=== PATIENT | male | born 1985 | race Caucasian/White ===

== ENCOUNTER → 2019-06-30 18:37 | Outpatient (CLI) | payer OTHER, SELFPAY ==
--- NOTE | 2019-06-30 | DI.MRI.S_ITS ---
PROCEDURE: MRFOOT LT WO CON INDICATIONS: pain in left foot TECHNIQUE: Noncontrast sagittal T1 spin echo and T2 fast spin echo with fat saturation, long-axis T1 spin echo and T2 fast spin echo with fat saturation, short-axis T1 spin echo and T2 fast spin echo with fat saturation through the forefoot. COMPARISON: None. FINDINGS: Image quality: Diagnostic. Bones and joints: No acute fracture, dislocation, or suspicious osseous lesion is appreciated involving the osseous structures of the left midfoot or forefoot. There is subtle marrow edema evident involving the shafts of the 2nd and to a lesser degree the 3rd and 4th metatarsals. No cortical breakthrough is evident. No significant cortical irregularity or thickening is appreciated. There are early degenerative changes involving the 1st metatarsal phalangeal joint without associated hallux valgus. No significant joint effusions are appreciated. Soft tissues: The visualized plantar foot muscles demonstrate normal signal and bulk. Visualized flexor and extensor tendons appear intact, without tenosynovitis. The distal insertions of the peroneus brevis and longus tendons appear intact. The principal Lisfranc ligament appears intact. No soft tissue ganglion cysts or bursal fluid collections. Sagittal images demonstrate no evidence for plantar plate tears. IMPRESSION: 1. Nonspecific marrow edema involving the 2nd through 4th metatarsal shafts may represent stress reaction. No definitive stress fractures are evident. 2. No soft tissue abnormalities of the left foot. 3. Early degenerative changes of the 1st metatarsophalangeal joint. Dictated by: Chris Moody M.D. on 07/01/2019 at 8:36 Approved by: Chris Moody M.D. on 07/01/2019 at 8:39
== END ==
DX: M79.672 Pain in left foot (principal)
CPT/HCPCS: 73718

== ENCOUNTER → 2023-02-04 07:11 | Outpatient (CLI) | payer OTHER, SELFPAY ==
[2023-02-04 08:29] LABS: Alanine Aminotransferase 29 IU/L (<50); Albumin 4.1 g/dL (3.5-5.0); Albumin Globulin Ratio 1.6 (1.0-2.8); Alkaline Phosphatase 63 U/L (38-126); Aspartate Aminotransferase 32 IU/L (17-59); BUN Creatinine Ratio 20.2 (6-22); Bilirubin Total 0.5 mg/dL (0.2-1.3); Blood Urea Nitrogen 20 mg/dL (9-20); Calcium 8.9 mg/dL (8.4-10.2); Carbon Dioxide 31 mmol/L (22-32); Chloride 102 mmol/L (98-107); Cholesterol 140 mg/dL (140-199); Creatine Kinase 244 U/L (55-170); Estimated Glomerular Filt Rate > 60 mL/min (>60); Globulin 2.6 g/dL (1.7-4.1); Glucose 90 mg/dL (70-100); HDL Cholesterol 53 mg/dL (40-60); HEMOLYSIS < 15 (0-50); LDL Cholesterol Calculated 61 mg/dL (<100); Potassium 4.3 mmol/L (3.4-5.1); Sodium 138 mmol/L (137-145); Total Protein 6.7 g/dL (6.3-8.2); Triglycerides 130 mg/dL (35-150)
[2023-02-04 08:31] LABS: Creatinine Urine Random 148.5 mg/dL
[2023-02-04 08:50] LABS: Microalbumin Urine Random < 0.6 mg/dL (0-1.6)
[2023-02-05 06:22] LABS: Apolipoprotein B 61 mg/dL (<90); Labcorp Hemoglobin (Hb) A1c 5.6 % (4.8-5.6)
[2023-02-06 16:05] LABS: Lipoprotein (a) 343.5 nmol/L (<75.0)
== END ==
PROVIDERS: Referring Provider Student in an Organized Health Care Education/Training Program; Visit Provider Student in an Organized Health Care Education/Training Program
DX: E78.5 Hyperlipidemia, unspecified (principal)
CPT/HCPCS: 36415; 80053; 80061; 82043; 82172; 82550; 82570; 83036; 83695

== ENCOUNTER → 2023-05-10 18:45 | Outpatient (CLI) | payer OTHER, SELFPAY ==
--- NOTE | 2023-05-10 | DI.MRI.S_ITS ---
PROCEDURE: MR KNEE LT WO CON INDICATIONS: left knee pain TECHNIQUE: Noncontrast sagittal PD fast spin echo and T2 fast spin echo with fat saturation, sagittal 3-D FLASH with fat saturation; coronal T1 spin echo and PD fast spin echo with fat saturation, and axial PD fast spin echo with fat saturation through the knee. COMPARISON: None. FINDINGS: Image quality: Excellent. Menisci: The medial and lateral menisci demonstrate normal morphology and internal signal. The meniscal root ligaments appear intact. Cruciate ligaments: The anterior and posterior cruciate ligaments appear intact. Medial structures: The medial collateral ligament appears intact. Visualized portions of the pes anserinus tendons appear normal. No abnormal bursal fluid. Lateral structures: The lateral collateral ligament, long and short heads of the biceps femoris tendon appear intact. The popliteus tendon appears normal. Iliotibial band appears normal. Anterior structures: The quadriceps and patellar tendons appear intact. Patellar alignment is normal. No femoral trochlear dysplasia or ventral trochlear prominence. No edema in the infrapatellar fat pad. Bones and cartilage: No fracture. Mild ill-defined T2 signal elevation within the posterior nonweightbearing aspect of the medial femoral condyle. The cartilage of the medial and lateral femorotibial compartments, as well as the patellofemoral compartment, appears normal in thickness. Joint space: There is physiologic knee joint fluid. Trace Villeda's cyst. Normal appearing synovial plicae are incidentally noted. IMPRESSION: 1. No internal derangement. 2. Mild ill-defined T2 signal elevation within the medial femoral condyle, possibly indicating contusion if there is a history of recent injury. Dictated by: Denise Pena M.D. on 05/13/2023 at 11:07 Approved by: Denise Pena M.D. on 05/13/2023 at 11:09
== END ==
PROVIDERS: Referring Provider Preventive Medicine Aerospace Medicine; Visit Provider Preventive Medicine Aerospace Medicine
DX: M25.562 Pain in left knee (principal)
CPT/HCPCS: 73721

== ENCOUNTER → 2023-05-16 07:22 | Outpatient (CLI) | payer OTHER, SELFPAY ==
[2023-05-16 09:35] LABS: TSH w/ Reflex to FT4 0.87 uIU/mL (0.47-4.68)
== END ==
PROVIDERS: Referring Provider Student in an Organized Health Care Education/Training Program; Visit Provider Student in an Organized Health Care Education/Training Program
DX: E78.5 Hyperlipidemia, unspecified (principal)
CPT/HCPCS: 36415; 84443

== ENCOUNTER → 2023-05-18 08:01 | Outpatient (CLI) | payer OTHER, SELFPAY ==
[2023-05-18 10:16] LABS: Cholesterol 141 mg/dL (140-199); Creatine Kinase 721 U/L (55-170); HDL Cholesterol 62 mg/dL (40-60); LDL Cholesterol Calculated 67 mg/dL (<100); Triglycerides 61 mg/dL (35-150)
[2023-05-19 08:29] LABS: Apolipoprotein B 57 mg/dL (<90)
[2023-05-21 12:57] LABS: Lipoprotein (a) 264.9 nmol/L (<75.0)
== END ==
PROVIDERS: Referring Provider Student in an Organized Health Care Education/Training Program; Visit Provider Student in an Organized Health Care Education/Training Program
DX: E78.5 Hyperlipidemia, unspecified (principal)
CPT/HCPCS: 36415; 80061; 82172; 82550; 83695

== ENCOUNTER → 2023-05-28 13:48 | Outpatient (CLI) | payer OTHER, SELFPAY ==
[2023-05-28 15:08] LABS: Creatine Kinase 200 U/L (55-170)
== END ==
PROVIDERS: Referring Provider Student in an Organized Health Care Education/Training Program; Visit Provider Student in an Organized Health Care Education/Training Program
DX: E78.5 Hyperlipidemia, unspecified (principal)
CPT/HCPCS: 36415; 82550

== ENCOUNTER → 2023-05-30 | Outpatient (CLI) | payer OTHER, SELFPAY | LOC: RAD 10:11 | DX: Z13.820 Encounter for screening for osteoporosis (principal) ==

== ENCOUNTER → 2023-09-10 07:05 | Outpatient (CLI) | payer OTHER, SELFPAY ==
[2023-09-10 08:54] LABS: Cholesterol 161 mg/dL (140-199); Creatine Kinase 170 U/L (55-170); HDL Cholesterol 58 mg/dL (40-60); LDL Cholesterol Calculated 73 mg/dL (<100); Triglycerides 152 mg/dL (35-150)
[2023-09-10 10:35] LABS: Hemoglobin A1C% w Est Avg Glu 5.3 % (4.0-6.0)
== END ==
PROVIDERS: PCP Family Medicine; Referring Provider Student in an Organized Health Care Education/Training Program; Visit Provider Student in an Organized Health Care Education/Training Program
DX: E78.5 Hyperlipidemia, unspecified (principal); R73.03 Prediabetes
CPT/HCPCS: 36415; 80061; 82550; 83036

== ENCOUNTER → 2024-01-21 08:01 | Outpatient (CLI) | payer OTHER, SELFPAY ==
[2024-01-21 09:08] LABS: Alanine Aminotransferase 28 IU/L (<50); Albumin 4.5 g/dL (3.5-5.0); Alkaline Phosphatase 57 U/L (38-126); Aspartate Aminotransferase 38 IU/L (17-59); Bilirubin Total 0.8 mg/dL (0.2-1.3); Blood Urea Nitrogen 20 mg/dL (9-20); Calcium 9.4 mg/dL (8.4-10.2); Carbon Dioxide 35 mmol/L (22-32); Chloride 104 mmol/L (98-107); Cholesterol 152 mg/dL (140-199); Estimated Glomerular Filt Rate > 60 mL/min (>60); Globulin 2.3 g/dL (1.7-4.1); Glucose 93 mg/dL (70-100); HDL Cholesterol 61 mg/dL (40-60); HEMOLYSIS < 15 (0-50); LDL Cholesterol Calculated 66 mg/dL (<100); Potassium 4.6 mmol/L (3.4-5.1); Sodium 139 mmol/L (137-145); Total Protein 6.8 g/dL (6.3-8.2); Triglycerides 127 mg/dL (35-150)
== END ==
LOC: LAB 08:03
PROVIDERS: PCP Family Medicine; Referring Provider Nurse Practitioner; Visit Provider Nurse Practitioner
DX: E78.01 Familial hypercholesterolemia (principal); E78.41 Elevated Lipoprotein(a)
CPT/HCPCS: 36415; 80053; 80061

== ENCOUNTER → 2024-02-17 10:23 | Outpatient (CLI) | payer OTHER, SELFPAY | PROVIDERS: PCP Family Medicine; Visit Provider Physician Assistant | DX: R30.0 Dysuria (principal) | CPT/HCPCS: 87086 ==

== ENCOUNTER → 2024-03-14 08:01 | Outpatient (CLI) | payer OTHER, SELFPAY ==
[2024-03-14 09:19] LABS: Alanine Aminotransferase 21 IU/L (<50); Albumin 4.5 g/dL (3.5-5.0); Albumin Globulin Ratio 1.9 (1.0-2.8); Alkaline Phosphatase 57 U/L (38-126); Aspartate Aminotransferase 28 IU/L (17-59); BUN Creatinine Ratio 19.5 (6-22); Bilirubin Total 0.5 mg/dL (0.2-1.3); Blood Urea Nitrogen 22 mg/dL (9-20); Calcium 9.7 mg/dL (8.4-10.2); Carbon Dioxide 30 mmol/L (22-32); Chloride 104 mmol/L (98-107); Cholesterol 186 mg/dL (140-199); Estimated Glomerular Filt Rate > 60 mL/min (>60); Globulin 2.4 g/dL (1.7-4.1); Glucose 91 mg/dL (70-100); HDL Cholesterol 51 mg/dL (40-60); HEMOLYSIS < 15 (0-50); LDL Cholesterol Calculated 95 mg/dL (<100); Potassium 4.8 mmol/L (3.4-5.1); Sodium 138 mmol/L (137-145); Total Protein 6.9 g/dL (6.3-8.2); Triglycerides 202 mg/dL (35-150)
== END ==
PROVIDERS: PCP Family Medicine; Referring Provider Nurse Practitioner; Visit Provider Nurse Practitioner
DX: E78.01 Familial hypercholesterolemia (principal); E78.41 Elevated Lipoprotein(a)
CPT/HCPCS: 36415; 80053; 80061

== ENCOUNTER → 2024-07-20 07:08 | Outpatient (CLI) | payer OTHER, SELFPAY ==
[2024-07-20 08:26] LABS: Cholesterol 162 mg/dL (140-199); HDL Cholesterol 71 mg/dL (40-60); LDL Cholesterol Calculated 65 mg/dL (<100); Triglycerides 129 mg/dL (35-150)
== END ==
LOC: LAB 07:09
PROVIDERS: PCP Family Medicine; Referring Provider Student in an Organized Health Care Education/Training Program; Visit Provider Student in an Organized Health Care Education/Training Program
DX: E78.01 Familial hypercholesterolemia (principal)
CPT/HCPCS: 36415; 80061

== ENCOUNTER → 2024-10-16 08:36 | Outpatient (CLI) | payer OTHER, SELFPAY ==
[2024-10-16 09:42] LABS: Alanine Aminotransferase 28 IU/L (<50); Albumin 4.4 g/dL (3.5-5.0); Alkaline Phosphatase 60 U/L (38-126); Aspartate Aminotransferase 30 IU/L (17-59); BUN Creatinine Ratio 18.2 (6-22); Bilirubin Total 0.9 mg/dL (0.2-1.3); Blood Urea Nitrogen 20 mg/dL (9-20); Calcium 9.6 mg/dL (8.4-10.2); Carbon Dioxide 29 mmol/L (22-32); Chloride 103 mmol/L (98-107); Cholesterol 141 mg/dL (140-199); Estimated Glomerular Filt Rate > 60 mL/min (>60); Globulin 2.2 g/dL (1.7-4.1); Glucose 95 mg/dL (70-100); HDL Cholesterol 65 mg/dL (40-60); HEMOLYSIS < 15 (0-50); LDL Cholesterol Calculated 59 mg/dL (<100); Potassium 4.5 mmol/L (3.4-5.1); Sodium 138 mmol/L (137-145); Total Protein 6.6 g/dL (6.3-8.2); Triglycerides 87 mg/dL (35-150)
[2024-10-16 10:40] LABS: Hemoglobin A1C% w Est Avg Glu 5.1 % (4.0-6.0)
== END ==
PROVIDERS: PCP Family Medicine; Referring Provider Family Medicine; Visit Provider Family Medicine
DX: Z00.00 Encounter for general adult medical examination without abnormal findings (principal); E78.49 Other hyperlipidemia; R73.03 Prediabetes
CPT/HCPCS: 36415; 80053; 80061; 83036

== ENCOUNTER → 2024-12-01 18:44 | Outpatient (CLI) | payer OTHER, SELFPAY ==
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
== END ==
LOC: MRI 18:44
PROVIDERS: PCP Family Medicine; Referring Provider Internal Medicine; Visit Provider Internal Medicine
DX: M67.951 Unspecified disorder of synovium and tendon, right thigh (principal); M25.551 Pain in right hip
CPT/HCPCS: 73721

== ENCOUNTER → 2025-07-15 08:30 | Outpatient (CLI) | payer OTHER, SELFPAY ==
[2025-07-15 09:25] LABS: Cholesterol 164 mg/dL (140-199); HDL Cholesterol 66 mg/dL (40-60); Triglycerides 129 mg/dL (35-150)
== END ==
PROVIDERS: PCP Family Medicine; Referring Provider Family Medicine; Visit Provider Student in an Organized Health Care Education/Training Program
DX: E78.010 Homozygous familial hypercholesterolemia [HoFH] (principal)
CPT/HCPCS: 36415; 80061